=== PATIENT | female | born 1960 | race Caucasian/White ===

== ENCOUNTER 2019-01-20 04:26 | Inpatient (IN) | payer MEDICARE, MEDICAID ==
[~2019-01-20] VITALS: Ht 175.3 cm; Wt 52.2 kg
[2019-01-20] MEDS ORDERED: ZOLPIDEM TARTRATE 10 MG TABLET PO PRN (07:45)
[2019-01-20] MEDS ORDERED: QUEtiapine FUMARATE 100 MG TABLET PO PRN (07:45)
[2019-01-20] MEDS ORDERED: LORazepam 2 MG TABLET PO PRN (07:45)
[2019-01-20] MEDS ORDERED: ACETAMINOPHEN 325 MG TABLET PO PRN (09:45)
[2019-01-20] MEDS ORDERED: DOCUSATE SODIUM 100 MG CAPSULE PO PRN (09:45)
[2019-01-20] MEDS ORDERED: GuaiFENesin/D-METHORPHAN [SUGAR-FREE] 200-20MG/10 ML SYRUP UDCUP PO PRN (09:45)
[2019-01-20] MEDS ORDERED: IBUPROFEN 400 MG TABLET PO PRN (09:45)
[2019-01-20] MEDS ORDERED: NICOTINE 14 MG/24 HOUR PATCH TD PRN (09:45)
[2019-01-20] MEDS ORDERED: LOPERAMIDE HCL 2 MG CAPSULE PO PRN (09:45)
[2019-01-20] MEDS ORDERED: ALBUTEROL SULFATE HFA 90 MCG/PUFF 8 GM INHALER IH PRN (09:45)
[2019-01-20] MEDS ORDERED: MAG HYDROX/AL HYDROX/SIMETH ES 30 ML SUSPENSION UDCUP PO PRN (09:45)
[2019-01-20] MEDS ORDERED: MAGNESIUM HYDROXIDE SUSPENSION 30 ML UDCUP PO PRN (09:45)
[2019-01-20] MEDS ORDERED: ONDANSETRON HCL 4 MG TABLET PO PRN (09:45)
[2019-01-20] MEDS ORDERED: CloNIDine HCL 0.1 MG TABLET PO PRN (09:45)
[2019-01-20] MEDS ORDERED: PETROLATUM,WHITE 28 GM JELLY TP PRN (09:45)
[2019-01-20 09:50] VITALS: BP 120/98
[2019-01-20 09:58] VITALS: BP 120/98
[2019-01-20] MEDS: QUEtiapine FUMARATE 25 MG TABLET PO SCH ×2 (11:15→20:22)
[2019-01-20] MEDS ORDERED: PNEUMOCOCCAL VACCINE POLYVALENT 0.5 ML VIAL [PPSV23] IM ONE (11:30)
[2019-01-20 16:11] VITALS: BP 139/99
[2019-01-20 16:13] VITALS: BP 139/99
[2019-01-20] MEDS: HYDROCORTISONE 1% 30 GM OINTMENT TP PRN (20:38)
[2019-01-21 05:57] VITALS: BP 127/78
[2019-01-21 07:28] LABS: AMPHET/METH SCREEN,URINE NEGATIVE (NEGATIVE); BARBITURATE SCREEN, URINE NEGATIVE (NEGATIVE); BENZODIAZEPINES SCREEN,URINE NEGATIVE (NEGATIVE); CANNABINOID SCREEN,URINE NEGATIVE (NEGATIVE); COCAINE SCREEN,URINE NEGATIVE (NEGATIVE); METHADONE SCREEN, URINE NEGATIVE (NEGATIVE); OPIATE SCREEN,URINE NEGATIVE (NEGATIVE)
[2019-01-21 07:33] LABS: PHENCYCLIDINE SCREEN,URINE NEGATIVE (NEGATIVE)
[2019-01-21 08:16] VITALS: BP 123/67
[2019-01-21] MEDS: QUEtiapine FUMARATE 25 MG TABLET PO SCH ×2 (08:45→20:46)
[2019-01-21] MEDS: HYDROCORTISONE 1% 30 GM OINTMENT TP PRN (12:45)
[2019-01-21 16:10] VITALS: BP 124/79
[2019-01-21] MEDS: TRIAMCINOLONE 0.5% 15 GM CREAM TP SCH (17:01)
[2019-01-22 07:13] VITALS: BP 126/68
[2019-01-22] MEDS: QUEtiapine FUMARATE 25 MG TABLET PO SCH (08:16)
[2019-01-22] MEDS: TRIAMCINOLONE 0.5% 15 GM CREAM TP SCH ×2 (08:16→16:55)
[2019-01-22] MEDS: HYDROCORTISONE 1% 30 GM OINTMENT TP PRN (08:17)
[2019-01-22 08:57] VITALS: BP 137/89
[2019-01-22] MEDS: QUEtiapine FUMARATE 100 MG TABLET PO SCH ×3 (09:00→21:06)
[2019-01-23 02:50] VITALS: BP 132/80
[2019-01-23 08:11] VITALS: BP 103/67
[2019-01-23] MEDS: TRIAMCINOLONE 0.5% 15 GM CREAM TP SCH ×2 (08:41→16:38)
[2019-01-23] MEDS: QUEtiapine FUMARATE 100 MG TABLET PO SCH ×2 (08:41→21:00)
[2019-01-23 16:20] VITALS: BP 123/61
[2019-01-24 06:21] VITALS: BP 119/89
[2019-01-24 08:14] VITALS: BP 120/79
[2019-01-24] MEDS: QUEtiapine FUMARATE 100 MG TABLET PO SCH (08:43)
[2019-01-24] MEDS: TRIAMCINOLONE 0.5% 15 GM CREAM TP SCH (08:44)
== END 2019-01-24 12:50 | disposition left against medical advice (07) | DRG 885 ==
LOC: B2X 07:57
PROVIDERS: ADMIT Psychiatry & Neurology Child & Adolescent Psychiatry; ATTEND Psychiatry & Neurology Child & Adolescent Psychiatry
DX: F29 Unspecified psychosis not due to a substance or known physiological condition (principal); F11.20 Opioid dependence, uncomplicated; L30.9 Dermatitis, unspecified; M79.7 Fibromyalgia; F12.90 Cannabis use, unspecified, uncomplicated; F41.9 Anxiety disorder, unspecified; G89.29 Other chronic pain; Z53.20 Procedure and treatment not carried out because of patient's decision for unspecified reasons; M54.9 Dorsalgia, unspecified; Z28.21 Immunization not carried out because of patient refusal
CPT/HCPCS: 80307